=== PATIENT | male | born 1990 ===

== ENCOUNTER 2022-07-21 23:42 | Emergency (ER) | payer SELFPAY ==
[2022-07-22 03:07] VITALS: BP 154/91
--- NOTE | 2022-07-22 03:40 | XRay Report ---
CHEST 2 VIEWS INDICATION / CLINICAL INFORMATION: Chest Pain. COMPARISON: None available. FINDINGS: SUPPORT DEVICES: None. HEART / MEDIASTINUM: Heart size and mediastinal contour appear within normal limits. LUNGS / PLEURA: No significant pulmonary or pleural abnormality. No pneumothorax. BONES: No significant osseous abnormality. ADDITIONAL FINDINGS: No significant additional findings. IMPRESSION: 1. No active cardiopulmonary disease. Signer Name: Carlos Phillip II, MD Signed: 07/22/2022 3:36 AM Workstation Name: [id number]
[2022-07-22 06:17] LABS: Basophils % (Auto) 0.8 % (0.0-1.8); Eosinophils # (Auto) 0.1 K/mm3 (0.0-0.4); Eosinophils % (Auto) 0.9 % (0.0-4.3); Hematocrit 47.7 % (35.5-45.6); Hemoglobin 16.1 gm/dl (11.8-15.2); Lymphocytes # (Auto) 1.9 K/mm3 (1.2-5.4); Lymphocytes % (Auto) 30.7 % (13.4-35.0); Mean Corpuscular HGB Conc 34 % (32-34); Mean Corpuscular Volume 96 fl (84-94); Monocytes # (Auto) 0.5 K/mm3 (0.0-0.8); Monocytes % (Auto) 8.8 % (0.0-7.3); Platelet Count 174 K/mm3 (140-440); Red Blood Count 4.98 M/mm3 (3.65-5.03); Red Cell Distribution Width 13.6 % (13.2-15.2)
--- NOTE | 2022-07-22 06:26 | Emergency Department Report ---
ED Chest Pain HPI - General Chief Complaint: Chest Pain Stated Complaint: CHEST PAIN,HEADACHES Source: patient Mode of arrival: Ambulatory Limitations: No Limitations - History of Present Illness Initial Comments: Patient is a 31-year-old male with no past medical history who presents to the ED with complaint of acute onset persistent elevated blood pressure, headache and chest pain for the last 2 days. Patient states that the symptoms got worse in the last 12 hours and he decided come to the ED for evaluation. Patient states that the chest pain and headache have since resolved after staying in the ED. Patient denies dizziness, syncope, nausea and vomiting, di aphoresis, numbness and tingling or weakness of upper and lower extremities bilaterally, abdominal pain, fever and chills or cough and traumatic injury or heavy lifting. MD Complaint: chest pain (diffuse), other (headache, elevated blood pressure) -: Gradual, days(s) (2) Onset: during rest Pain Location: substernal, left chest, right chest Pain Radiation: none Severity: moderate Severity scale (0 -10): 4 Quality: aching, pressure Consistency: constant Improves With: nothing Worsens With: nothing Context: other (elevated blood pressure) re: denies: nausea, vomting, diaphoresis, dyspnea, sense of impending doom Other Symptoms: denies: cough, fever, syncope, rash, acid taste in mouth, leg swelling, palpitations, burping, other Treatments Prior to Arrival: none - Related Data On Oral Contraceptives: No Previous Rx's Medication Instructions Recorded Last Taken Type Naproxen 500 mg PO Q12H PRN #30 tab 07/22/22 Unknown Rx amLODIPine 10 mg PO DAILY #30 tab 07/22/22 Unknown Rx hydrOXYzine PAMOATE [Vistaril] 25 mg PO Q6HR PRN #40 capsule 07/22/22 Unknown Rx Allergies Allergy/AdvReac Type Severity Reaction Status Date / Time No Known Allergies Allergy Unverified 07/22/22 03:07 Heart Score - HEART Score History: Slightly suspicious EKG: Normal Age: < 45 Risk factors: No known risk factors Troponin: < normal limit HEART Score: 0 - EKG Read Time Time EKG Completed: 03:10 EKG Read Time: 03:15 - Critical Actions Critical Actions: 0-3 pts:0.9-1.7%risk of adverse cardiac event.Candidate for discharge ED Review of Systems ROS: Stated complaint: CHEST PAIN,HEADACHES Other details as noted in HPI Constitutional: denies: chills, fever Eyes: denies: eye pain, eye discharge, vision change ENT: denies: ear pain, throat pain Respiratory: denies: cough, shortness of breath, wheezing Cardiovascular: chest pain (diffuse). denies: palpitations Endocrine: no symptoms reported Gastrointestinal: denies: abdominal pain, nausea, vomiting, diarrhea Genitourinary: denies: urgency, dysuria Musculoskeletal: denies: back pain, joint swelling, arthralgia Skin: denies: rash, lesions Neurological: headache. denies: weakness, paresthesias Psychiatric: denies: anxiety, depression Hematological/Lymphatic: denies: easy bleeding, easy bruising ED Past Medical Hx - Past Medical History Previous Medical History?: No - Medications Home Medications: Home Medications Medication Instructions Recorded Confirmed Last Taken Type Naproxen 500 mg PO Q12H PRN #30 tab 07/22/22 Unknown Rx amLODIPine 10 mg PO DAILY #30 tab 07/22/22 Unknown Rx hydrOXYzine PAMOATE [Vistaril] 25 mg PO Q6HR PRN #40 capsule 07/22/22 Unknown Rx ED Physical Exam - General Limitations: No Limitations General appearance: alert, in no apparent distress - Head Head exam: Present: atraumatic, normocephalic, normal inspection - Eye Eye exam: Present: normal appearance, PERRL, EOMI - ENT ENT exam: Present: normal exam, normal orophraynx, mucous membranes moist, TM's normal bilaterally, normal external ear exam - Neck Neck exam: Present: normal inspection, full ROM. Absent: tenderness - Respiratory Respiratory exam: Present: normal lung sounds bilaterally. Absent: respiratory distress, wheezes, rales, rhonchi, stridor, chest wall tenderness, accessory muscle use, decreased breath sounds, prolonged expiratory - Cardiovascular Cardiovascular Exam: Present: regular rate, normal rhythm, normal heart sounds. Absent: systolic murmur, diastolic murmur, rubs, gallop - GI/Abdominal GI/Abdominal exam: Present: soft, normal bowel sounds. Absent: tenderness, guarding, rebound, hyperactive bowel sounds, hypoactive bowel sounds, organomegaly, mass - Extremities Exam Extremities exam: Present: normal inspection, full ROM, normal capillary refill. Absent: tenderness - Back Exam Back exam: Present: normal inspection, full ROM. Absent: tenderness, CVA tenderness (R), CVA tenderness (L), muscle spasm, paraspinal tenderness, vertebral tenderness - Neurological Exam Neurological exam: Present: alert, oriented X3, CN II-XII intact, normal gait, reflexes normal - Psychiatric Psychiatric exam: Present: normal affect, normal mood - Skin Skin exam: Present: warm, dry, intact, normal color. Absent: rash ED Course Vital Signs 07/22/22 03:05 Temperature 98.7 F Pulse Rate 75 Respiratory 16 Rate Blood Pressure 154/91 [Right] O2 Sat by Pulse 100 Oximetry ARUN score - Arun Score Age > 65: (0) No Aspirin use within the Past 7 Days: (0) No 3 or more CAD Risk Factors: (0) No 2 or more Angina events in past 24 hrs: (0) No Known CAD with more than 50% Stenosis: (0) No Elevated Cardiac Markers: (0) No ST Deviation Greater than 0.5mm: (0) No ARUN Score: 0 ED Medical Decision Making - Lab Data Result diagrams: 07/22/22 05:38 - EKG Data EKG shows normal: sinus rhythm Rate: normal - EKG Data Interpretation: normal EKG 07/22/22 06:26 The EKG shows normal sinus rhythm with a ventricular rate of [address] or T wave abnormalities - Radiology Data Radiology results: report reviewed, [place] [address] XRay Report Signed Patient: TIFFANY NYE MR#: [id number] : 1990 Acct:[id number] Age/Sex: 31 / M ADM Date: 07/21/22 Loc: ED Attending Dr: Ordering Physician: ED MD ANNY Date of Service: 07/22/22 Procedure(s): XR chest routine 2V Accession Number(s): [id number] cc: ED MD ANNY Fluoro Time In Minutes: CHEST 2 VIEWS INDICATION / CLINICAL INFORMATION: Chest Pain. COMPARISON: None available. FINDINGS: SUPPORT DEVICES: None. HEART / MEDIASTINUM: Heart size and mediastinal contour appear within normal limits. LUNGS / PLEURA: No significant pulmonary or pleural abnormality. No pneumothorax. BONES: No significant osseous abnormality. ADDITIONAL FINDINGS: No significant additional findings. IMPRESSION: 1. No active cardiopulmonary disease. Signer Name: Shantanu Antonio II, MD Signed: 07/22/2022 3:36 AM Workstation Name: [id number] Transcribed By: PHILIP Dictated By: SHANTANU ANTONIO II, MD Electronically Authenticated By: SHANTANU ANTONIO II, MD Signed Date/Time: 07/22/22335 DD/ 5 TD/TT: - Medical Decision Making This is a 31-year-old male with no past medical history who presents to the ED with complaint of acute onset persistent elevated blood pressure, headache and chest pain for the last 2 days. Patient states that the symptoms got worse in the last 12 hours and he decided come to the ED for evaluation. Patient states that the chest pain and headache have since resolved after st aying in the ED. in the ED, patient is alert and oriented x3 and is not in any distress. The EKG shows normal sinus rhythm with a ventricular rate of [address] or T wave abnormalities. Chest x-ray showed no acute cardiopulmonary abnormalities or pneumonitis. All lab test results were reviewed and are all nonactionable. Patient's heart score is 0 and patient is PERC negative per Wells criteria. Patient was discharged home on medications and advised to follow-up with his primary care physician in 5 to 7 days for reevaluation or return to the ED immediately if symptoms get worse. - Differential Diagnosis ACS; Costochondritis; Muscle strain; pneumonia; Critical care attestation.: If time is entered above; I have spent that time in minutes in the direct care of this critically ill patient, excluding procedure time. ED Disposition Clinical Impression: Acute nonspecific chest pain with low risk of coronary artery disease, Anxiety as acute reaction to exceptional stress, Uncontrolled hypertension, stage 1 Disposition: 01 HOME / SELF CARE / HOMELESS Is pt being admited?: No Does the pt Need Aspirin: No Condition: Stable Instructions: Chest Pain (ED), Hypertension (ED), Nonspecific Chest Pain, Adult, [id number], Chest Wall Pain, [id number], Hypertension, Adult, [id number], Generalized Anxiety Disorder, Adult Additional Instructions: La radiografa de trax no mostr anomalas cardiopulmonares agudas ni neumonitis. Todos los resultados de las pruebas de laboratorio fueron revisados ??y no son procesables. El electrocardiograma muestra un ritmo sinusal normal con shyam frecuencia ventricular de 86 lpm y sin anomalas en las ondas ST o T. Carrero puntaje cardaco es 0 y es probable que marciano sntomas se deban a ansiedad, cost ocondritis o tensin muscular en la pared torcica. Por lo tanto, tome la medicacin con alimentos, levar muchos lquidos, controle con carrero mdico de atencin primaria en 7 a 10 stark para shyam reevaluacin. Regrese al servicio de urgencias inmediatamente si los sntomas empeoran. Prescriptions: amLODIPine 10 mg PO DAILY #30 tab Naproxen 500 mg PO Q12H PRN #30 tab PRN Reason: Pain , Severe (7-10) hydrOXYzine PAMOATE [Vistaril] 25 mg PO Q6HR PRN #40 capsule PRN Reason: Anxiety Referrals: [facility] [Provider Group] - 3-5 Days Forms: Work/School Release Form(ED) Time of Disposition: 06:30 Print Language: MOHAWK
[2022-07-22 06:28] LABS: Alanine Aminotransferase 187 units/L (7-56); Albumin 4.9 g/dL (3.9-5); Blood Urea Nitrogen 8 mg/dL (9-20); Calcium 9.4 mg/dL (8.4-10.2); Hemolysis Index 15
[2022-07-22 06:30] LABS: BUN/Creatinine Ratio 20
--- NOTE | 2022-07-23 09:50 | Electrocardiograph Report ---
[facility] Test Date: 2022-07-22 Test Time: 03:10:49 Pat Name: TIFFANY NYE Department: Room: Gender: M Sales Team Manager: BHUPINDER : 1990 Requested By: SKYE MUNSON Order Number: [id number] Reading MD: Aguilar Wells Measurements Intervals Shirley Rate: 86 P: 8 NH: 161 QRS: 31 QRSD: 98 T: 34 QT: 388 QTc: 465 Interpretive Statements Sinus rhythm No previous ECG available for comparison Electronically Signed On 07-23-2022 9:49:26 EDT by Aguilar Wells
== END 2022-07-22 07:41 | disposition home or self-care (01) ==
LOC: ED 23:42
DX: R07.9 Chest pain, unspecified (principal); F41.9 Anxiety disorder, unspecified; I10 Essential (primary) hypertension
CPT/HCPCS: 36415; 71046; 80053; 84484; 85025; 93005; 99283